=== PATIENT | male | born 1950 | race Caucasian/White ===

== ENCOUNTER 2018-01-18 06:20 | Emergency (ER) | payer OTHER, BC ==
[~2018-01-18] VITALS: Ht 180.3 cm; Wt 72.4 kg
[2018-01-18 07:02] LABS: HEMOGLOBIN 13.5 G/DL (12.5-16.6); MCH 32.1 PG (29.0-34.0); MCHC 34.6 G/DL (30.0-36.0); MCV 92.6 FL (86-99); PLATELET COUNT 193 K/uL (156-360); RBC DIS.WIDTH-CV 12.9 % (11.8-14.6); RBC DIS.WIDTH-SD 43.6 % (39-53); RED BLOOD COUNT 4.21 M/uL (4.00-5.50); WHITE BLOOD COUNT 12.4 K/uL (4.1-10.2)
[2018-01-18 07:05] LABS: APPEARANCE CLEAR ((CLEAR)); BILIRUBIN NEGATIVE; BLOOD NEGATIVE; COLOR YELLOW ((YELLOW)); GLUCOSE (STRIP) NEGATIVE; KETONES 20; LEUKOCYTES NEGATIVE; NITRITE NEGATIVE; PROTEIN (STRIP) 30; SPECIFIC GRAVITY 1.036 (1.000-1.030)
[2018-01-18 07:34] LABS: ALBUMIN 4.2 G/DL (3.2-4.8); CHLORIDE 103 MEQ/L (99-109); POTASSIUM 3.8 MEQ/L (3.7-5.4); SODIUM 137 MEQ/L (136-147); TOTAL BILIRUBIN 1.2 MG/DL (0.0-1.0)
[2018-01-18 07:40] LABS: ALKALINE PHOSPHATASE 47 IU/L (3-129); ALT (GPT) 14 IU/L (3-49); AST (GOT) 40 IU/L (2-34); CREATININE 1.1 MG/DL (0.6-1.3); GFR ESTIMATE (CALCULATED) > 59 mL/min/ (58.99-99999); GLUCOSE 144 mg/dL (70-99); LIPASE 15 U/L (1.0-51.0); TOTAL PROTEIN 6.7 G/DL (6.4-8.3); UREA NITROGEN (BUN) 30 mg/dL (9-23)
[2018-01-18 11:45] VITALS: BP 137/68
[2018-01-18] MEDS ORDERED: CIPRO500 MG PO (16:48)
[2018-01-18] MEDS ORDERED: FLAGYL500 MG PO (16:48)
[2018-01-18] MEDS ORDERED: COLACE100 MG PO (16:49)
[2018-01-18] MEDS ORDERED: ONDANSETRON HCL8 MG PO (16:49)
[2018-01-18] MEDS ORDERED: DILAUDID4 MG PO (16:51)
[2018-01-18 18:08] VITALS: BP 99/56
[2018-01-18 19:19] VITALS: BP 100/58
[2018-01-18 19:20] VITALS: BP 100/58
[2018-01-19 00:08] VITALS: BP 95/51
[2018-01-19 03:49] VITALS: BP 103/55
[2018-01-19 06:35] LABS: HEMATOCRIT 34.7 % (38.0-50.0); HEMOGLOBIN 11.6 G/DL (12.5-16.6); MCH 31.7 PG (29.0-34.0); MCHC 33.4 G/DL (30.0-36.0); MCV 94.8 FL (86-99); PLATELET COUNT 161 K/uL (156-360); RBC DIS.WIDTH-CV 13.2 % (11.8-14.6); RBC DIS.WIDTH-SD 46.2 % (39-53); RED BLOOD COUNT 3.66 M/uL (4.00-5.50)
[2018-01-19 06:39] LABS: CHLORIDE 104 MEQ/L (99-109); GFR ESTIMATE (CALCULATED) > 59 mL/min/ (58.99-99999); GLUCOSE 109 mg/dL (70-99); POTASSIUM 4.4 MEQ/L (3.7-5.4); SODIUM 139 MEQ/L (136-147); UREA NITROGEN (BUN) 17 mg/dL (9-23)
[2018-01-19 06:52] LABS: PLAT.SUFFICIENCY ADEQUATE
[2018-01-19 08:50] VITALS: BP 103/58
[2018-01-19 09:44] LABS: APPEARANCE CLEAR ((CLEAR)); BILIRUBIN NEGATIVE; BLOOD NEGATIVE; COLOR YELLOW ((YELLOW)); GLUCOSE (STRIP) NEGATIVE; KETONES NEGATIVE; LEUKOCYTES NEGATIVE; NITRITE NEGATIVE; PROTEIN (STRIP) NEGATIVE; SPECIFIC GRAVITY 1.015 (1.000-1.030); UROBILINOGEN 0.2 MG/DL (0.2-1.0)
[2018-01-19 12:04] VITALS: BP 114/63
[2018-01-19 20:31] VITALS: BP 102/58
[2018-01-20 00:26] VITALS: BP 108/61
[2018-01-20 04:13] VITALS: BP 101/58
[2018-01-20 08:30] VITALS: BP 113/61
[2018-01-20 08:32] LABS: HEMATOCRIT 36.6 % (38.0-50.0); HEMOGLOBIN 12.2 G/DL (12.5-16.6); MCH 31.6 PG (29.0-34.0); MCHC 33.3 G/DL (30.0-36.0); MCV 94.8 FL (86-99); PLATELET COUNT 145 K/uL (156-360); RBC DIS.WIDTH-CV 12.8 % (11.8-14.6); RBC DIS.WIDTH-SD 44.3 % (39-53); RED BLOOD COUNT 3.86 M/uL (4.00-5.50); WHITE BLOOD COUNT 6.2 K/uL (4.1-10.2)
[2018-01-20 08:52] LABS: CHLORIDE 102 MEQ/L (99-109); GFR ESTIMATE (CALCULATED) > 59 mL/min/ (58.99-99999); GLUCOSE 93 mg/dL (70-99); POTASSIUM 3.7 MEQ/L (3.7-5.4); SODIUM 137 MEQ/L (136-147); UREA NITROGEN (BUN) 15 mg/dL (9-23)
[2018-01-20] MEDS ORDERED: FLOMAX0.4 MG PO (10:49)
== END 2018-01-20 11:33 | disposition home or self-care (01) ==
LOC: DELPENDDIS → EME 06:20 → 2EASTP 10:18 → ENRESERV 11:22 → EME 11:36 → ENPENDDIS 01-19 14:53 → 2EASTP 01-20 11:33
PROVIDERS: Nurse Practitioner Family; Physician Assistant Surgical; Surgery
PROC: 0DTJ4ZZ Resection of Appendix, Percutaneous Endoscopic Approach (ICD-10-PCS; principal; 2018-01-18)
DX: K35.80 Unspecified acute appendicitis (principal); R50.82 Postprocedural fever; I70.0 Atherosclerosis of aorta; N28.1 Cyst of kidney, acquired
CPT/HCPCS: 74177; 80048; 80053; 81003; 83690; 85027; 87086; 88304; 99281; 99285; G0378; J0131; J0690; J1100; J1644; J2175; J2405; J2543; J2710; J3010; J7030; J7050; J7120; J7643